=== PATIENT | male | born 1940 ===

== ENCOUNTER 2018-05-19 15:33 | Emergency (ER) | payer MEDICARE, BC ==
--- OUTSIDE RECORDS SUMMARY | 2018-05-19 15:38 | XMS REPORT ---
:1940 External Reference #:[id number] Author Organization [facility] Address [address] [place] [address] [place] [address] Phone [phone] Care Team Providers Name Role Phone Leo Briscoe MD Primary Care Physician Unavailable Payers Type Date Identification Numbers Payment Provider Subscriber Medicare Primary Policy Number: [id number] Medicare Eduard Russo PayID: [id number] [address] [place] [address] [facility] Part B Policy Number: [id number] [facility] Eduard Russo PayID: [id number] [address] [place] [address] Problems Date Description Provider Status Onset: 04/25/2018 Polyneuropathy Junior Sosa M.D. 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 Active nerve Onset: 05/08/2015 Spinal stenosis of lumbar region Gilma Lopez M.D. Active Family History Date Family Member(s) Problem(s) Comments General Colon Cancer General Stroke Social History Type Date Description Comments Occupation Retired Occupation Education ETOH Use Occasionally consumes alcohol Smoking Patient is a former smoker pipe Recreational Drug Use Denies Drug Use Allergies, Adverse Reactions, Alerts Date Description Reaction Status Severity Comments 05/08/2015 Penicillin Urticaria active Medications Medication Date Status Form Strength Qnty SIG Indications Ordering Provider Losartan Active Tablets 50mg 1 by Tatyana Briscoe 00 mouth MD Leo every day Aspir-Low Active Tablets DR 325mg 1/2 by Unknown 00 mouth every day Tamsulosin HCL Active Capsules 0.4mg 1 by Unknown 00 mouth every day Vitamin B-12 Active Tablets 1000mcg 1 by Unknown 00 mouth Natural every day Multi For Him Active Capsules 1 by Unknown 00 mouth every day Vital Signs Date Vital Result Comment 05/06/2018 Height 66 inches 5'6" Weight 190.00 lb Heart Rate 64 /min BP Systolic Sitting 130 mmHg BP Diastolic Sitting 74 mmHg Respiratory Rate 16 /min BMI (Body Mass Index) 30.7 kg/m2 04/25/2018 Height 66 inches 5'6" Weight 194.00 lb Heart Rate 76 /min BP Systolic 134 mmHg BP Diastolic 88 mmHg BMI (Body Mass Index) 31.3 kg/m2 05/08/2015 Height 66 inches 5'6" Weight 195.00 lb Heart Rate 60 /min BP Systolic Sitting 140 mmHg BP Diastolic Sitting 80 mmHg Pain Level 8 back/front of knee BMI (Body Mass Index) 31.5 kg/m2 Results Test Date Test Result H/L Range Note Protein Electrophoresis 04/26/2018 Total Protein(Pep) 6.7 g/dL 6.3 - 7.9 1 Albumin 3.2 g/dL 3.4-4.7 1 Alpha-1 Globulin 0.2 g/dL 0.1-0.3 1 Alpha-2 Globulin 0.8 g/dL 0.6-1.0 1 Beta Globulin 0.9 g/dL 0.7-1.2 1 Gamma Globulin 1.6 g/dL 0.6-1.6 1 Albumin/Globulin Ratio 0.92 1 Impression See Comment 1, 2 Laboratory test finding 04/26/2018 Erythrocyte Sed Rate 11 mm/Hr 0-40 1 C Reactive Protein 1.56 mg/L <8.01 1, 3 1 CC GILMA WALTON 2 RESULT: No apparent monoclonal protein on serum electrophoresis. Test Performed by: [address] [id number] CC GILMA WALTON Procedures Date CPT Code Description Status 04/26/2018 54795 Nerve Conduction 05-06 Studies Completed 04/26/2018 34042 Needle Electromyography Complete, Five Or More Muscles Completed Studied Encounters Type Date Location Provider CPT E/M Dx Office Visit 04/25/2018 [facility] Junior Sosa, 68613 S84.12xA 10:30a [facility] M48.062 G62.9 Office Visit 05/08/2015 1:30p [facility] Gilma Lopez, 69254 724.03 Of [facility] Plan of Care Future Appointment(s):07/08/2018 4:00 pm - Junior Sosa M.D. at [facility]05/06/2018 - Junior Sosa M.D.G62.9 Polyneuropathy, unspecifiedNew Therapy:Physical TherapyFollow up:Follow up in 6 weeks CC GILMA WALTONRecommendations:Call me 1 week after the MRIM48.062 Spinal stenosis, lumbar region with neurogenic claudicationNew Labs:Basic Metabolic PanelNew Xrays:MRI Lumbar Spine W/Wo
--- OUTSIDE RECORDS SUMMARY | 2018-05-19 15:39 | XMS REPORT ---
:1940 External Reference #:[id number] Author Organization [facility] Address [address] [place] [address] [place] [address] Phone [phone] Care Team Providers Name Role Phone Leo Briscoe MD Primary Care Physician Unavailable Payers Type Date Identification Numbers Payment Provider Subscriber Medicare Primary Policy Number: [id number] Medicare Eduard Russo PayID: [id number] [address] [place] [address] [facility] Part B Policy Number: [id number] [facility] Eduard Russo PayID: [id number] [address] [place] [address] Problems Date Description Provider Status Onset: 04/25/2018 Polyneuropathy Junior Sosa M.D. 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 Active nerve Onset: 05/08/2015 Spinal stenosis of lumbar region Mann Lopez M.D. Active Family History Date Family [...] Provider Losartan Active Tablets 50mg 1 by Luis Felipe, Potassium 00 mouth MD Leo every day Aspir-Low Active Tablets DR 325mg 1/2 by Unknown 00 mouth every day Tamsulosin HCL Active Capsules 0.4mg 1 by Unknown 00 mouth every day Vitamin B-12 Active Tablets 1000mcg 1 by Unknown 00 mouth Natural every day Multi For Him Active Capsules 1 by Unknown 00 mouth every day Vital Signs Date Vital Result Comment 04/25/2018 Height 66 inches 5'6" Weight 194.00 lb Heart Rate 76 /min BP Systolic 134 mmHg BP Diastolic 88 mmHg BMI (Body Mass Index) 31.3 kg/m2 05/08/2015 Height 66 inches 5'6" Weight 195.00 lb Heart Rate 60 /min BP Systolic Sitting 140 mmHg BP Diastolic Sitting 80 mmHg Pain Level 8 back/front of knee BMI (Body Mass Index) 31.5 kg/m2 Results Description No Information Procedures Description No Information Encounters Type Date Location Provider CPT E/M Dx Office Visit 04/25/2018 [facility] Junior Sosa [id number] S84.12xA 10:30a [facility] M48.062 G62.9 Office Visit 05/08/2015 1:30p [facility]surgery [facility] Mann Lopez 35114 724.03 Of [facility] Plan of Care Future Appointment(s):05/06/2018 2:30 pm - Junior Sosa M.D. at [facility]04/25/2018 - Junior Sosa M.D.S84.12xA Injury of peroneal nerve at lower leg level, left leg, initNew Labs:Spep Protein Electro, SerumEsr Sedimentation RateCRP C-Reactive ProteinNew Orders:EMG w/Nerve Conduct Study, LowerFollow up:Follow up 1-2 weeks after EMG/NCSM48.062 Spinal stenosis, lumbar region with neurogenic [id number] Polyneuropathy, unspecified
[2018-05-19 15:45] VITALS: BP 180/63
--- NOTE | 2018-05-19 15:53 | UC ---
Abdominal Pain Male HPI - HPI Summary HPI Summary: The patient is a 78 y/o M presenting to [facility] c/o abd cramping and distended hernia starting this morning around 09:00. He was working in his garden when he began to feel pain in his LLQ that radiates to his left flank and lower back, which was rated 5/10 in severity. The pain worsened throughout the day to 8/10 in severity when he felt a left inguinal hernia that he has had for the last few years start to distend. He tried to alleviate the hernia through flatulence and rest as he normally does, but the pain persisted. When he attempts to stand up or bend over, the pain starts to radiate in intermittent episodes as a sharp "surge" down through his left medial leg from groin, causing the pain to be rated 10/10 in severity. Currently he rates the pain 5/10 in severity. He has not seen a surgeon for the hernia. He has not had any abd surgeries, but he had back surgery in December 2015. He has hx of HTN. - History of Current Complaint Stated Complaint: ABDOMINAL PAIN Time Seen by Provider: 05/19/18 15:39 Hx Obtained From: Patient Onset/Duration: Sudden Onset, Lasting Hours, Still Present Timing: Constant Severity Initially: Severe Severity Currently: Moderate Pain Intensity: 5 - can be aggravated to 10/10 with movment Pain Scale Used: 0-10 Numeric Location: Discrete At: LLQ Radiates: Yes Radiates to: Back - left lower, Flank - left Character: Cramping, Sharp Aggravating Factor(s): Movement, Other - bending Alleviating Factor(s): Rest Associated Signs And Symptoms: Positive: Back Pain, Other - pain down left medial leg from groin Male Torso: 1 - pain radiates from LLQ to left flank to left lower back 2 - pain radiates to left lower back from LLQ - Allergies/Home Medications Allergies/Adverse Reactions: Allergies Allergy/AdvReac Type Severity Reaction Status Date / Time Penicillins Allergy Rash Verified 05/19/18 15:45 Home Medications: Home Medications B12/Iodin/Mag/Zinc/Ann/Zdta360 [Adrenoid Capsule] 5,000 mcg 05/19/18 [History] Losartan TAB* [Cozaar TAB*] 50 mg 05/19/18 [History] NIFEdipine CAP* [Procardia CAP*] 30 mg 05/19/18 [History] Tamsulosin CAP* [Flomax CAP*] 05/19/18 [History] PMH/Surg Hx/FS Hx/Imm Hx Other Endocrine History: NEGATIVE: diabetes Cardiovascular History: Hypertension GI/ History: Other Other GI/ History: Left inguinal hernia - Surgical History Surgical History: Yes Surgery Procedure, Year, and Place: LUMBAR SPINE SURGERY 2016 - Family History Known Family History: Positive: Hypertension Review of Systems Gastrointestinal: Abdominal Pain - pain in LLQ radiating to left flank Musculoskeletal: Other: - left lower back pain, pain down left medial leg All Other Systems Reviewed And Are Negative: Yes Physical Exam - Summary Physical Exam Summary: General: well-appearing, severe pain distress Skin: warm, color reflects adequate perfusion, dry Head: normal Eyes: EOMI, JAYLON ENT: normal Neck: supple, nontender Respiratory: CTA, breath sounds present Cardiovascular: RRR Abdomen: soft, tympanitic to precaution, swelling in left inguinal area Bowel: high pitched bowel sounds Musculoskeletal: normal, strength/ROM intact Neurological: sensory/motor intact, A&O x3 Psychological: affect/mood appropriate Triage Information Reviewed: Yes Vital Signs Reviewed: Yes Diagnostics - Radiology Abdomen/Pelvis CT Xray Interpretation: Positive (See Comments) - 1. Moderate colonic diverticulosis without findings of acute diverticulitis. 2. Small bowel containing small RIGHT inguinal hernia and fat-containing small LEFT inguinal hernia without resulting bowel obstruction or significant inflammatory change. 3. Prostatomegaly. 4. 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 Negative for aneurysm of the abdominal aorta. [facility] physician has reviewed this report. Radiology Interpretation Completed By: Radiologist Re-Evaluation - Re-Evaluation First Eval Re-Evaluation Time: 15:50 Change: Improved Comment: Upon re-eval, with the pt in the recumbant position, I reduced the left inguinal hernia, abd is normal, and bowel sounds are present. Second Eval Re-Evaluation Time: 16:40 Change: Improved Comment: Upon re-eval, pt is nontender to palpation and in no pain distress. Abd Pain Male Course/Dx - Course Course Of Treatment: Medications reviewed. Allergies noted. BP noted and advised to follow up with PCP. PAIN GONE AFTER LEFT INGUINAL HERNIA REDUCTION. DISCUSSED WITH SURGERY, DR NIX, WHO WILL SEE THE PATIENT IN HIS OFFICE TOMORROW, 05/20/18, AT 11:45AM. THE PATIENT KNOWS TO GO TO THE EMERGENCY DEPARTMENT FOR ANY WORSENING OF HIS CONDITION. - Differential Dx/Clinical Impression Provider Diagnoses: LEFT INGUINAL HERNIA. INGUINAL ARTERY ANEURYSM. HTN, Discharge - Sign-Out/Discharge Documenting (check all that apply): Patient Departure - Patient will be discharged home. - Discharge Plan Condition: Stable Disposition: HOME Patient Education Materials: Inguinal Hernia (ED) Referrals: [facility] [Provider Group] Wale Nix MD [Medical Doctor] - Leo Briscoe MD [Primary Care Provider] - Additional Instructions: FOLLOW UP WITH DR NIX, SURGERY, TOMORROW AT 11:45 AM. FOLLOW UP WITH YOUR PRIMARY CARE DOCTOR. DISCUSS THE ANEURYSM FOUND ON CT. GO TO THE EMERGENCY DEPARTMENT FOR ANY WORSENING OF YOUR CONDITION; PAIN, FEVER , VOMITING, YOU FEEL LIGHT HEADED OR QUESTIONS OR CONCERNS. Your blood pressure was elevated during todays visit; please follow up with your primary care provider within a week for further evaluation. - Billing Disposition and Condition Condition: STABLE Disposition: Home Attestation Statement Scribe Attestation: This is von Avalos documenting for attending Dr. Gilles Seaman MD. User Type: Provider with Scribe Provider Attestation: The documentation recorded by the scribe accurately reflects the service I personally performed and the decisions made by me.
--- NOTE | 2018-05-19 16:52 | RAD ---
INDICATION: Status post reduction of incarcerated LEFT inguinal hernia. LEFT groin and LEFT leg pain. COMPARISON: No relevant prior exams available on the [facility] PACS for comparison. TECHNIQUE: Multidetector CT images were obtained from the lung bases to the ischial tuberosities. Evaluation of the viscera is limited without IV contrast. No oral contrast administered. Multiplanar reformation. REPORT: VISUALIZED INFERIOR THORAX: Unremarkable. LIVER / GALLBLADDER / PANCREAS / SPLEEN: Negative for CT abnormality of the unenhanced liver, gallbladder, pancreas, spleen. Small splenule adjacent to the splenic hilum. ALIMENTARY TRACT: Unremarkable unopacified upper GI and small bowel. Transverse lie cecum to radiating at the midline. The appendix is not visualized limiting assessment. No inflammatory change evident in the region of the cecum. Moderate colonic diverticulosis without findings of acute diverticulitis. Negative for ascites or free air. Small small bowel containing RIGHT inguinal hernia without inflammatory change or resulting bowel obstruction. Small fat-containing LEFT inguinal hernia without inflammatory change. MESENTERIC: Physiologic activity only. ADRENAL / GENITOURINARY: Normal adrenal glands. Multiple parapelvic cysts of the LEFT kidney. Negative for hydronephrosis. No suspicious focal renal lesions or stones. Unremarkable nondilated ureters and partially distended urinary bladder. Enlarged prostate. Grossly symmetric seminal vesicles. RETROPERITONEAL: Negative for lymphadenopathy. VASCULAR: Normal diameter abdominal aorta with minimal calcific plaque. 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 BONES: Polyarticular degenerative arthropathy. Postsurgical change of L3-L4 and L4-L5 decompressive laminectomies. 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 Negative for suspicious focal osseous lesions. SOFT TISSUE: Unremarkable. IMPRESSION: #. Moderate colonic diverticulosis without findings of acute diverticulitis. #. Small bowel containing small RIGHT inguinal hernia and fat-containing small LEFT inguinal hernia without resulting bowel obstruction or significant inflammatory change. #. Prostatomegaly. #. 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 Negative for aneurysm of the abdominal aorta.
== END 2018-05-19 17:28 | disposition home or self-care (01) ==
LOC: UCEAST 15:33
DX: K40.90 Unilateral inguinal hernia, without obstruction or gangrene, not specified as recurrent (principal); I72.3 Aneurysm of iliac artery; K57.30 Diverticulosis of large intestine without perforation or abscess without bleeding; I10 Essential (primary) hypertension; M54.5 Low back pain; Z88.0 Allergy status to penicillin
CPT/HCPCS: 74176; 99211; G0463

== ENCOUNTER → 2018-06-30 05:58 | Day surgery (SDC) | payer MEDICARE, BC ==
--- NOTE | 2018-06-21 17:52 | HP ---
CC: Dr. Briscoe * PREOPERATIVE HISTORY AND PHYSICAL: DATE OF ADMISSION: 06/30/18 This patient is scheduled for same-day surgery admission by Dr. Tejeda on , 06/30/18. DATE OF PREOPERATIVE HISTORY AND PHYSICAL EXAMINATION: 06/21/18. ATTENDING SURGEON: Dr. Wale Tejeda * (dictated by Martha Ge NP) CHIEF COMPLAINT: Left groin hernia. HISTORY OF PRESENT ILLNESS: The patient is a 78-year-old male referred to Dr. Tejeda after he was seen in the emergency room with incarcerated left inguinal hernia, which was able to be reduced. He had a subsequent CAT scan, which showed no evidence of obstruction. He was symptomatic with left abdominal pressure that wrapped around to his back. He denies any repeat episode of incarceration; he denies any change in urinary or bowel habits. He has had no previous abdominal surgery. Dr. Tejeda examined the patient and notes a moderately large left inguinal hernia, which is reducible; he also has a small right inguinal hernia that is soft and reducible. Dr. Tejeda discussed the findings with the patient and has recommended open repair of the left inguinal hernia with mesh as a same-day surgery procedure with local anesthetic and intravenous sedation. He described the nature of the surgical procedure, the relevant risks and benefits, and today I reviewed the expected postoperative care and recovery. At this time, the right inguinal hernia will not be repaired. The patient has had a chance to ask questions and stated that he understands the information and is satisfied with the answers given to his questions. He will sign surgical consent on the day of surgery. 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 Junior Sosa. MEDICATIONS: 1. Losartan 50 mg p.o. daily. 2. Nifedipine 30 mg sustained release 1 tablet daily as needed for circulation. 3. Tamsulosin 0.4 mg p.o. daily. 4. Ibuprofen 400 mg p.r.n. 5. Vitamin B12 1000 mcg p.o. daily. 6. Adult aspirin one-half tablet p.o. daily and he will hold that for 5 days preoperatively and take the last dose 06/24/18. ALLERGIES: PENICILLIN causes rash. FAMILY HISTORY: Mother with a history of colon cancer. Father with heart disease and history of stroke. SOCIAL HISTORY: He is . He is a former pipe smoker; he drinks 2 to 3 alcoholic beverages per week. He denies the use of other substances. REVIEW OF SYSTEMS: Constitutional: No fevers, chills, excessive fatigue, or weight loss. Endocrine: No diabetes or thyroid disease. Hematologic: No easy bruising or bleeding, no history of blood transfusions. Respiratory: No dyspnea on exertion. No chronic cough. Cardiovascular: No anginal chest pain or palpitations. Gastrointestinal: No nausea, vomiting, diarrhea, GI bleeding , or chronic constipation. No recent change in bowel habits. No heartburn. Genitourinary: No dysuria. Musculoskeletal: Moves all 4 extremities, walks with a cane due to neuropathy of both lower extremities related to lumbar stenosis. Neurologic: No headache or blurred vision. General: No previous anesthesia complications. No history of deep vein thrombosis or pulmonary embolism. PHYSICAL EXAMINATION GENERAL SURVEY: The patient is a 78-year-old male, overweight, well-developed, in no acute distress. VITAL SIGNS: Height 66 inches, weight 190 pounds, body mass index 30.7, blood pressure 148/80, pulse 60 and regular, respiratory rate 16, temperature 97.9 tympanic. HEENT: Benign. NECK: Supple. No cervical lymphadenopathy. No supraclavicular lymphadenopathy. LUNGS: Breath sounds bilaterally clear and equal. HEART: Regular rate and rhythm. No murmurs or rubs appreciated. ABDOMEN: Active bowel sounds. Soft, nondistended, nontender throughout. No obvious masses, organomegaly, or evidence of umbilical hernia. BACK: Well-healed surgical scar in the lumbar region. No CVA tenderness. INGUINAL EXAM: Done by Dr. Tejeda, right groin small inguinal hernia, soft and reducible; left groin moderately large inguinal hernia, which is reducible with a little bit more manipulation; testes normally descended without palpable masses. RECTAL: Exam deferred. EXTREMITIES: Warm without edema or skin ulcerations. NEUROLOGIC: Alert and oriented x3. Gait is fairly steady. He does occasionally use a cane. SKIN: Warm, dry, intact. IMPRESSION: Left inguinal hernia. PLAN: Same-day surgery admission to Dr. Tejeda's service on , 06/30/18 , for open left inguinal hernia repair with mesh. INDRA GE, MATTRESS FINISHER [id number]/[facility] #: [id number] [facility]OSPITALJose Angel
[~2018-06-30 05:58] MED LIST: Acetaminophen TAB* 325 MG PO PRN; Buffered Lidocaine 0.9% SYRIN* 5 ML/SYR SYRINGE INTRADERM ONE; Bupivacaine 0.25% EPI 200,000* 30 ML SDV ONE; Bupivacaine 0.5% SDV PF* 30ML VIAL ONE; Clindamycin 900 MG/D5W BAG(*) 900 MG/50 ML BAG IVPB ONE; Dexamethasone IV* 4 MG/ML 1 ML (4 MG) ONE; Famotidine IV* 10 MG/ML 2 ML (20 mg) IV ONE; Famotidine IV* 10 MG/ML 2 ML (20 mg) ONE; KETAMINE HCL* 50 MG/ML 10 ML VIAL ONE; Ketorolac INJ* 30 MG/ML 1 ML VIAL ONE; Lidocain 1% EPI 1:100,000 * 30 ML MDV ONE; Lidocaine 1% INJ* 10 MG/ML 30 ML SDV ONE; Lidocaine 1% MPF wEPI 200,000* 30 ML SDV ONE; Lidocaine 2% PF * 5 ML VIAL ONE; Midazolam* 1 MG/ML 5 ML VIAL (5 MG) ONE; Naloxone* 0.4 MG/ML 1 ML VIAL IV PRN; Ondansetron INJ* 2 MG/ML VIAL IV PRN; Ondansetron INJ* 2 MG/ML VIAL ONE; Propofol* 10 MG/ML 20 ML BTL IV PUSH ONE; fentaNYL* 50 MCG/ML 2 ML VIAL (100 MCG VIAL) IV PRN; fentaNYL* 50 MCG/ML 2 ML VIAL (100 MCG VIAL) ONE; oxyCODONE/Acetamin 5/325 MG* TAB PO PRN
--- NOTE | 2018-06-30 10:51 | OP ---
Operative Report - Blank - Operative Report Date of Operation: 06/30/18 Note: Brief Operative Note Preop Dx: Left Inguinal Hernia Postop Dx: same; direct Procedure: open repair LIH w/ mesh (PHSE) Anesthesia: local MAC Surgeon: Ileana Temp Recruiter: HODAN Carver Fluids: 500 ml RL EBL: none Specimen: none Drains: none Findings: dictated
[2018-06-30 12:44] VITALS: BP 147/70
--- NOTE | 2018-07-01 04:24 | OP ---
CC: Dr. Rony Briscoe * DATE OF OPERATION: 06/30/18 - SDS DATE OF : 42 SURGEON: Wale Tejeda MD [employer] PROFILER: HODAN Sheldon ANESTHESIOLOGIST: Laura. ANESTHESIA: LMAC anesthesia. PRE-OP DIAGNOSIS: Left inguinal hernia. POST-OP DIAGNOSIS: Left inguinal hernia. OPERATIVE PROCEDURE: Open left inguinal hernia repair with mesh. DESCRIPTION OF PROCEDURE: The patient was supine on the operating table. After adequate intravenous sedation, compression stockings, Carolyn Hugger warmer and intravenous antibiotics, the left groin was clipped and prepped with antiseptic, draped in a sterile fashion. Local infiltrative anesthesia was administered and approximately 2-1/2 inch incision was created, carried down to tissue layers to the external oblique, which was opened in the direction of its fibers. The cord structures were encircled with Turin drain. There was an obvious direct space hernia. This was dissected free and the transversalis fascia was opened and the preperitoneal plane developed and a Prolene Hernia System E patch was placed into the preperitoneal space. It was sutured at the tubercle and at the Alfred's ligament. External leaf was sutured to the inguinal ligament at the tubercle and the transverse abdominis, tails were split , brought around the cord structures, tacked down laterally. External oblique was closed over top with 2-0 Vicryl, Eric's with 3-0 Vicryl, skin with 4-0 Surgipro. Sterile dressing was placed. He tolerated the procedure well, was brought to recovery in good condition. No complications. No drains. No pathologic specimen. Sponge and instrument counts correct. Estimated blood loss is 10 mL. [id number] #: [id number] [facility]
== END | disposition home or self-care (01) ==
LOC: OR 05:58
PROVIDERS: ATTEND Surgery
DX: K40.90 Unilateral inguinal hernia, without obstruction or gangrene, not specified as recurrent (principal); Z87.891 Personal history of nicotine dependence; I10 Essential (primary) hypertension
CPT/HCPCS: C1781; J1100; J1885; J2001; J2250; J2405; J2704; J3010